=== PATIENT | male | born 1950 | race Asian ===

== ENCOUNTER 2018-09-17 10:15 | Inpatient (IN) | payer OTHER, MEDICARE ==
[~2018-09-17] VITALS: Ht 175.3 cm; Wt 72.6 kg
[~2018-09-17 10:15] MED LIST: HCTZ; LISINOPRIL1 POW; METHYLDO; METOPROLOL1 MG/ML; OMEPRAZOLE1 POW; SIMVASTATIN1 POW
[2018-09-17 10:17] VITALS: Ht 175.3 cm; Wt 72.6 kg
--- NOTE | 2018-09-17 10:29 | NUR ---
DR. MONTEJO MADE AWARE.
--- NOTE | 2018-09-17 10:53 | NUR ---
PT TO XRAY AT THIS TIME
[2018-09-17 11:08] LABS: BASOPHIL % 1.1 % (0-2); PLATELET COUNT 326 x10^3mcL (130-400); RED CELL DISTRIBUTION WIDTH 13.2 % (11.5-14.5)
[2018-09-17 11:16] LABS: CALCIUM 9.2 mg/dL (8.5-10.1); CHLORIDE SERUM 100 mmol/L (98-107); CREATININE SERUM 1.1 mg/dL (0.7-1.3); GFR1 > 60 mL/min; GLUCOSE SERUM 102 mg/dL (74-106); POTASSIUM SERUM 3.9 mmol/L (3.5-5.1); SODIUM SERUM 140 mmol/L (136-145)
[2018-09-17 11:20] LABS: ALBUMIN 3.4 g/dL (3.4-5.0); ALKALINE PHOSPHATASE 72 U/L (46-116); ALT/SGPT 30 U/L (16-63); AST/SGOT 29 U/L (15-37); BILIRUBIN TOTAL 0.25 mg/dL (0.20-1.00); TOTAL PROTEIN, SERUM 7.7 g/dL (6.4-8.2)
--- NOTE | 2018-09-17 12:15 | NUR ---
RT AT BEDSIDE FOR BREATHING TX
--- NOTE | 2018-09-17 12:40 | NUR ---
PT MEDICATED PER MD ORDERS SEE EMAR. BREATHING TX COMPLETED PT REMAINS ON FULL CM VSS WILL MONITOR.
--- NOTE | 2018-09-17 13:50 | NUR ---
PT SITTING IN BED REPORTS FEELING A LITTLE BETTER NO RESP DISTRESS. THERE IS STILL SOME WHEEZING NOTED THROUGHOUT LUNG SHIPMAN. VSS ON FULL CM WILL MONITOR
--- NOTE | 2018-09-17 14:31 | NUR ---
REPORT GIVEN TO YOKASTA CISNEROS RESUMING CARE OF PT IN TELE FLOOR
--- NOTE | 2018-09-17 14:59 | NUR ---
PT TRANSPORTED TO TELE FLOOR VIA [facility] ON PORTABLE CM BY HERMELINDA CISNEROS AND MUNDO CROOK. YOKASTA CISNEROS RESUMING CARE OF PT IN TELE FLOOR
[2018-09-17 16:15] VITALS: BP 137/78
--- NOTE | 2018-09-17 16:53 | NUR ---
RECEIVED PT FROM ER, PT ADMIT FOR COPD, PT IS A/O X3, VERY FORGETFUL, FOLLOW COMMAND AND ABLE TO TELL WHAT HE NEEDS. LUNG SOUND WHEEZING CAIO, DENY ANY SOB AT THIS MOMENT, PT IS ON 2L/MIN O2 VIA NC. PO2 96%, PT IS ON TELE 32,NSR, DENY ANY CHEST PAIN OR DISCOMFORT, BOWEL SOUND PRESENT ALL 4 QUADRANTS, NO DISTENTION, NO TENDER. PEDAL PULSE PRESENT BOTH FEET, NO EDEMA, IV AT RIGHT AC, NO LEAKING, NO INFITLRATION. ALL ADLS ASSIST, ALL NEED MET, CALL LIGHT IN REACH, WILL CONTINUE TO MONITOR.
[2018-09-17 17:24] VITALS: BP 137/78
--- NOTE | 2018-09-17 18:38 | NUR ---
PT SITTING UP IN BED. NO ACUTE DISTRESS NOTED. RESP EVEN AND UNLABORED ON 2L NC. DENIES SOB. HEPLOCK PATENT. BED IN LOW POSITION. CALL LIGHT WITHIN REACH. WILL BE ENDORSED.
--- NOTE | 2018-09-17 19:57 | NUR ---
RECEIVED AWAKE IN BED WATCHING TV. DENIES ANY PAIN/DISCOMFORT. SKIN WARM ABND DRY TO TOUCH WITH DRY SCAB AT THE LEFT FOREHEAD/LEFT WRIST , OPEN TO AIR. RESPIRATION EVEN AND UNLABORED , WHEEZING BILATERALLY. ON TELE #32 WITH NSR AT 76/MIN. DENIES ANY PAIN/DISCOMFROT. CALL LIGHT WITHIN REACH.
[2018-09-17 21:30] VITALS: BP 127/68
--- NOTE | 2018-09-17 23:35 | NUR ---
ALL DUE MEDICATIONS GIVEN AND WELL TOLERATED. HS SNACK GIVEN PER PT'S REQUEST, TOLERATED WELL.
--- NOTE | 2018-09-18 01:00 | NUR ---
ABLE TO SLEEP AT SHORT INTERVALS. AMBULATED TO BATHROOM FOR PERSONAL NEEDS . KEPT CLEAN AND DRY.
[2018-09-18 04:39] VITALS: BP 140/80
--- NOTE | 2018-09-18 06:13 | NUR ---
DUE MEDICATIONS GIVEN AND WELL TOLERATED. DENIES ANY PAIN/DISCOMFORT AT THIS TIME. CALL LIGHT WITHIN REACH AT ALL TIMES. BED IN LOWEST POSITION FOR SAFETY. ALL NEEDS ATTENDED.
[2018-09-18 06:30] LABS: BASOPHIL % 0.3 % (0-2); PLATELET COUNT 378 x10^3mcL (130-400); RED CELL DISTRIBUTION WIDTH 13.2 % (11.5-14.5)
[2018-09-18 06:33] LABS: CALCIUM 9.5 mg/dL (8.5-10.1); CARBON DIOXIDE 28.7 mmol/L (21-32); CHLORIDE SERUM 100 mmol/L (98-107); CHOLESTEROL 161 mg/dL (<200); CHOLESTEROL/HDL RATIO 3.5; CREATININE SERUM 1.1 mg/dL (0.7-1.3); GFR1 > 60 mL/min; GLUCOSE SERUM 140 mg/dL (74-106); HDL CHOLESTEROL 46 mg/dL (40-60); MAGNESIUM 1.9 mg/dL (1.8-2.4); POTASSIUM SERUM 3.6 mmol/L (3.5-5.1); SODIUM SERUM 139 mmol/L (136-145); TRIGLYCERIDES 53 mg/dL (<150)
--- NOTE | 2018-09-18 07:09 | NUR ---
RECEIVED REPORT FROM JERED CISNEROS. PT SITTING COMFORTABLY AT EDGE OF BED. SALINE LOCK TO RAC IS PATENT AND INTACT. NO REDNESS OR PAIN. TELE # [address] PT DENIES CHEST PAIN. PT ON ROOM AIR. NO C/O SOB AND NO DISTRESS NOTED. PT C/O MILD HEADACHE AND POINTS TO SCAB ON THE LEFT SIDE OF HIS HEAD. PT C/O PAIN AND POINTS TO SCAB ON LEFT WRIST AND BRUSIE ON RIGHT KNEE. WILL MEDICATE PRN. ALL QUESTIONS AND CONCERNS ADDRESSED.
[2018-09-18 08:30] VITALS: BP 136/74
--- NOTE | 2018-09-18 11:48 | NUR ---
RECEIVE A CALL FROM [facility] THAT PATIENT IS OF TELE. WENT IN TO SEE PATIENT AND HE HAS CHANGED HIS CLOTHES, REMOVED HIS TELE MONITOR AND IV. NO BLEEDING NOTED TO IV SITE. PT STATED THAT THE DOCTOR TOLD HIM HE IS GOING TO BE DISCHARGED AND HE IS READY TO GO. INFORMED PATIENT THAT THE DOCTOR MUST FIRST PUT THE ORDERS IN THE COMPUTER THEN I WILL COME IN TO DISCUSS DISCHARGE AND HAVE HIM SIGN PAPERS THEN HE CAN FGO HOME. PT VERBALIZED UNDERSTANDING.
[2018-09-18 12:36] VITALS: BP 130/53; BP 130/73
[2018-09-18] MEDS ORDERED: LIPI10 PO (14:10)
[2018-09-18] MEDS ORDERED: ZES10 PO (14:10)
[2018-09-18] MEDS ORDERED: ADV250/50 INH (14:10)
[2018-09-18] MEDS ORDERED: PROTONIX40 MG/Pac1 PO (14:11)
[2018-09-18] MEDS ORDERED: MUCINEX600 MG PO (14:11)
[2018-09-18] MEDS ORDERED: THERA TABLET400 MCG PO (14:11)
[2018-09-18] MEDS ORDERED: FOL1 PO (14:11)
[2018-09-18] MEDS ORDERED: THI100 PO (14:11)
[2018-09-18] MEDS ORDERED: PREDNISONE20 MG PO (14:12)
[2018-09-18] MEDS ORDERED: COMINH INH (14:14)
[2018-09-18 14:22] VITALS: BP 130/73
--- NOTE | 2018-09-18 14:58 | NUR ---
PT STABLE FOR DISCHARGE PER MD. DISCHARGE INSTRUCTIONS AND SUMMARY DISCUSSED WTIH PATIENT USING [employer] PHONE WITH [employer] # [id number]. PT VERBALIZED UNDERSTANDING AND ALL QUESTIONS AND CONCERNS WERE ADDRESSED. PT FAMILY WAS CALLED AND WILL BE ABLE TO PICK HIM UP @ 19:30. AWAITING TRANSPORTATION. MEANWHILE I WILL CONTINUE CARE, HOWEVER PATIENT HAS REMOVED TELE MONITOR AND IV. THEREFORE ANY IV MEDICATIONS CAN NO LONGER BE GIVEN.
--- NOTE | 2018-09-18 19:02 | NUR ---
PT TRANSPORTATION HAS ARRIVED. NOTIFIED PT FAMILY OF DISCHARGE PRESCRIPTIONS, AND THAT PT IS TO FOLLOW UP WITH PCP IN ONE WEEK. PT FAMILY VERBALIZED UNDERSTANDING AND AGREES TO FOLLOW UP. PT ESCORTED TO [facility]OB[facility].
== END 2018-09-18 19:42 | disposition home or self-care (01) | DRG 140 ==
LOC: ED 10:15 → DU 13:57
PROVIDERS: ADMIT Internal Medicine
DX: J44.1 Chronic obstructive pulmonary disease with (acute) exacerbation (principal); J96.00 Acute respiratory failure, unspecified whether with hypoxia or hypercapnia; I10 Essential (primary) hypertension; K21.9 Gastro-esophageal reflux disease without esophagitis; E78.5 Hyperlipidemia, unspecified; F10.20 Alcohol dependence, uncomplicated; T51.0X1A Toxic effect of ethanol, accidental (unintentional), initial encounter; F17.210 Nicotine dependence, cigarettes, uncomplicated; Z68.28 Body mass index [BMI] 28.0-28.9, adult; E78.00 Pure hypercholesterolemia, unspecified
CPT/HCPCS: 83880; J2920; J2930; J7613; J7644